=== PATIENT | male | born 1980 | race Two or more races ===

== ENCOUNTER 2019-06-16 19:41 | Emergency (ER) | payer SELFPAY ==
[~2019-06-16] VITALS: Ht 175.3 cm; Wt 77.1 kg
[2019-06-16 20:00] VITALS: BP 142/89
--- NOTE | 2019-06-16 20:00 | NUR ---
ED Nurse Note: Patient walked in to ER c/o dizziness x 2 days. Patient reports left chest pain radiating to back when moving.Patient presented calm, cooperative, AAO x4, VSS at this time.
--- NOTE | 2019-06-16 20:16 | Emergency Room Report ---
History of Present Illness General Chief Complaint: Dizziness Source: Patient Present Illness HPI 39-year-old male history of hypertension presents with dizziness after suddenly lying down happened 2 days ago, aggravated with position alleviated threats he feels like he is on a boat severity is moderate lasting a few minutes resolves when he stays still patient presents for evaluation Allergies: Coded Allergies: No Known Allergies (Unverified , 06/16/19) Patient History Past Medical History: see triage record Reviewed Nursing Documentation: PMH: Agreed; PSxH: Agreed Nursing Documentation-PMH Past Medical History: No Stated History Review of Systems All Other Systems: negative except mentioned in HPI Physical Exam Vital Signs Date Time Temp Pulse Resp B/P (MAP) Pulse Ox O2 Delivery O2 Flow Rate FiO2 06/16/19 19:44 98.1 74 16 142/89 (106) 97 Room Air Sp02 EP Interpretation: reviewed, normal General Appearance: well appearing, no apparent distress, alert Head: normocephalic, atraumatic Eyes: bilateral eye PERRL, bilateral eye EOMI ENT: uvula midline, moist mucus membranes Neck: supple, thyroid normal, supple/symm/no masses Respiratory: lungs clear, no respiratory distress, no retraction, no accessory muscle use Cardiovascular #1: normal peripheral pulses, regular rate, rhythm, no edema, no gallop, no murmur Gastrointestinal: non tender, soft, no guarding, no rebound Musculoskeletal: normal inspection Neurologic: alert, motor strength/tone normal, 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 III-XII nml as tested, oriented x3, cerebellar normal - Finger-nose testing intact, speech normal, normal gait, no pronator, other - Romberg negative, patient with fatigable nystagmus to the right, Henderson-Hallpike positive on the right side Psychiatric: mood/affect normal Skin: no rash, warm/dry Medical Decision Making Diagnostic Impression: Primary Impression: Vertigo ER Course 39-year-old male presents most likely with vertigo, Maura maneuver was conducted , which improved his vertigo counseled patient patient also incidentally found to have elevated blood pressure, Counseled patient to follow-up with primary care doctor will start him on amlodipine We will start meclizine Disposition home with return precautions follow-up with PCP Last Vital Signs Date Time Temp Pulse Resp B/P (MAP) Pulse Ox O2 Delivery O2 Flow Rate FiO2 06/16/19 19:44 98.1 74 16 142/89 (645) 87 Room Air Disposition: HOME, SELF-CARE Condition: Stable Scripts Amlodipine Besylate* (AMLODIPINE BESYLATE*) 5 Mg Tablet 5 MG ORAL DAILY, #60 TAB Prov: Abundio Green MD 06/16/19 Meclizine Hcl* (MECLIZINE*) 25 Mg Tablet 25 MG ORAL THREE TIMES A DAY PRN for for dizziness, #30 TAB Prov: Abundio Green MD 06/16/19 Referrals: [facility] Patient Instructions: Hypertension, [id number], Vertigo Additional Instructions: The patient was provided with discharge instructions, notified to follow-up with a primary care doctor and or specialist in the next 24-48 hours, and to return to the ED if they have worsening of their symptoms. Please note that this report is being documented using DRAGON technology. This can lead to erroneous entry secondary to incorrect interpretation by the dictating instrument. Abundio Green MD Jun 16, 2019 20:16
[2019-06-16] MEDS ORDERED: AMLODIPINE BESYL5 MG ORAL (20:28)
[2019-06-16] MEDS ORDERED: MECLIZINE HCL25 MG ORAL (20:28)
[2019-06-16 20:40] VITALS: BP 142/89
--- NOTE | 2019-06-16 20:40 | NUR ---
ED Nurse Note: Pt cleared by health care Provider for discharge. DC instructions/prescription was given and explained to pt and verbalized understanding of teachings. All medical deviecs such as ID band removed. Pt is AAO x4, ambulatory and left with all personal belongings.
== END 2019-06-16 20:40 | disposition home or self-care (01) ==
LOC: EMR 20:00
DX: R42 Dizziness and giddiness (principal); I10 Essential (primary) hypertension
CPT/HCPCS: 99282